=== PATIENT | female | born 1965 | race Caucasian/White ===

== ENCOUNTER 2017-12-29 04:45 | Day surgery (SDC) | payer OTHER ==
[~2017-12-29 04:45] MED LIST: CARDURA XL4 MG PO; MULTI VITAMIN1 EACH PO; VITAMIN D10000 UNIT PO
== END 2017-12-29 12:30 | disposition home or self-care (01) ==
LOC: CIR.AMB 04:45
DX: K40.90 Unilateral inguinal hernia, without obstruction or gangrene, not specified as recurrent (principal)